=== PATIENT | male | born 1940 | race Caucasian/White ===

== ENCOUNTER 2017-10-19 16:31 | Emergency (ER) | payer MEDICARE, OTHER ==
[~2017-10-19] VITALS: Ht 177.8 cm; Wt 75.0 kg
[~2017-10-19 16:31] MED LIST: ASPI81 PO; CIPR500T2 PO; FERR324T4 PO; LISI-363 PO; METO50TA PO; NITR.4 SL; SIMV10TA PO
[2017-10-19] MEDS ORDERED: EPINEPHrine HCL (1:10,000) 1 MG/10 ML SYRINGE IV ONE (16:32)
[2017-10-19] MEDS ORDERED: CALCIUM CHLORIDE 10% SOLN 1 GRAM/10 ML SYR IV ONE (16:32)
[2017-10-19] MEDS ORDERED: SODIUM BICARBONATE 8.4% INJ 50 MEQ/50 ML SYR IV ONE (16:32)
--- NOTE | 2017-10-19 19:23 | PD ---
HPI Chief Complaint: Code Blue Time Seen by Provider: 19:16 Travel History International Travel<30 days: No (UNOBTAINABLE ) Contact w/Intl Traveler<30days: No (UNOBTAINABLE) Traveled to known affect area: No (UNOBTAINABLE) History of Present Illness HPI This is a 76-year-old male with history of hypertension, hyperlipidemia, who is brought in via EMS in cardiac arrest. Patient. 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 When workers or working with him evaluated him, they found him to be without pulses. CPR was immediately initiated. Paramedics arrived, they found the patient to be in PEA. ACLS protocol was initiated. The patient was intubated with a Combitube. He was transported emergently with CPR in progress. Patient had received 2 doses of epinephrine prior to arrival. He is also been given 100 mg of sodium bicarbonate. PFSH Past Medical History Anxiety: Yes Depression: Yes Heart Rhythm Problems: No Cancer: No Cardiovascular Problems: Yes High Cholesterol: Yes Chest Pain: No Congestive Heart Failure: No Diminished Hearing: No Endocrine: No Genitourinary: Yes Hypertension: Yes Immune Disorder: No Kidney Stones: No Musculoskeletal: No Neurologic: No Psychiatric: Yes Reproductive: No Respiratory: No Renal Failure: No Tetanus Vaccination: Unknown Past Surgical History Abdominal Surgery: No Cardiac Surgery: No Ear Surgery: No Endocrine Surgery: No Eye Surgery: No Genitourinary Surgery: Yes (PROSTATECTOMY) Gynecologic Surgery: No Oral Surgery: No Thoracic Surgery: No Other Surgery: Yes (SKIN GRAPH) Social History Alcohol Use: Yes (OCCATIONALLY) Tobacco Use: No Substance Use: No Allergies-Medications (Allergen,Severity, Reaction): Coded Allergies: No Known Allergies (Verified Adverse Reaction, Unknown, 10/19/17) Reported Meds & Prescriptions Reported Meds & Active Scripts Active Reported Nitroglycerin 0.4 Mg Subl 0.4 Mg SL DIRECTED Aspirin 81 Mg Tab 81 Mg PO DAILY Simvastatin 10 Mg Tab 10 Mg PO HS Ferrous Sulfate 325 Mg Tab 325 Mg PO DAILY Metoprolol Tartrate 50 Mg Tab 25 Mg PO BID Cipro (Ciprofloxacin) 500 Mg Tab 500 Mg PO BID Lisinopril 20 Mg Tab 20 Mg PO BID Review of Systems ROS Limitations: Intubated, Unresponsive (Cardiac arrest) Physical Exam Narrative GENERAL: Well-developed well-nourished male in acute cardiac arrest, patient was being ventilated through a Combitube. Chest compressions were in progress. SKIN: Focused skin assessment warm/dry. HEAD: There is an abrasion to the forehead. Normocephalic. EYES: Pupils fixed and nonreactive at 3 mm. No scleral icterus. No injection or drainage. ENT: No nasal bleeding or discharge. Combitube was in place. There was a large amount of secretions coming from the non-ventilatory tube. NECK: Trachea midline. No JVD. CARDIOVASCULAR: PEA on the monitor. No pulses appreciated. RESPIRATORY: Coarse rhonchi bilaterally. Equal breath sounds bilaterally. No breath sounds over the epigastrium. GASTROINTESTINAL: Abdomen soft, nondistended. MUSCULOSKELETAL: No obvious deformities. No clubbing. . NEUROLOGICAL: Awake and alert 0. Patient was in cardiac arrest. No spontaneous movement. GCS was 3. MDM Medical Decision Making Medical Screen Exam Complete: Yes Emergency Medical Condition: Yes Differential Diagnosis Acute cardiac arrest Narrative Course 76-year-old male presents in cardiac arrest. Patient had an episode where he collapsed while working on a roof. Patient was found to be in PEA by paramedics. ACLS protocol was initiated. He was intubated using the CMAC with an 8.0 ET tube. Patient had received 2 mg of epinephrine and 100 mEq of sodium bicarb in the field. He was given 2 further doses of epinephrine, calcium chloride, 1 g, 50 mEq of sodium chloride. Patient rhythm was asystole. Bedside ultrasound showed no cardiac activity. Patient was pronounced at 1646. Critical Care Narrative Aggregate critical care time was 45 minutes. Time to perform other separately billable procedures was not included in the critical care time. My time did not include minutes spent treating any other patients simultaneously or on activities that did not directly contribute to the patient's treatment. The services I provided to this patient were to treat and/or prevent clinically significant deterioration that could result in: I provided critical care services requiring my management, as noted below: Chart data review, documentation time, medication orders and management, vital sign assessments/reviewing monitor data, ordering and reviewing lab tests, ordering and interpreting/reviewing x-rays and diagnostic studies, care of the patient and discussion of the patient with the admitting physicians. Procedures Procedure Narrative Combitube was removed and patient was orotracheally intubated using the CMAC: INTUBATION: The patient was put in optimal position for the procedure. The patient was intubated with a 8.0 cuffed endotracheal tube. Tube placement was confirmed by visualization of the tube and balloon passing through the cords, capnometry. Breath sounds were equal and well aerated bilaterally postintubation. No breath sounds over stomach. Diagnosis Primary Impression: Acute cardiopulmonary arrest Additional Impressions: History of hypertension Coronary artery disease Disposition: 20 Condition: Devonte Ferrari MD Oct 19, 2017 19:23
== END 2017-10-19 20:08 | disposition expired ==
LOC: NEPE 16:31 → NEPI 20:08
DX: I46.9 Cardiac arrest, cause unspecified (principal); I10 Essential (primary) hypertension; I25.10 Atherosclerotic heart disease of native coronary artery without angina pectoris; E78.00 Pure hypercholesterolemia, unspecified
CPT/HCPCS: 92950; 99291; J0171